=== PATIENT | female | born 1970 | race Two or more races ===

== ENCOUNTER 2020-06-07 09:13 | Outpatient (CLI) | payer OTHER | END 2020-06-07 23:59 | disposition home or self-care (01) | LOC: LAB 09:13 | PROVIDERS: ATTEND Specialist | DX: Z01.812 Encounter for preprocedural laboratory examination (principal); Z20.822 Contact with and (suspected) exposure to COVID-19 | CPT/HCPCS: C9803; U0003 ==

== ENCOUNTER 2020-06-13 05:54 | Day surgery (SDC) | payer OTHER ==
[2020-06-13] MEDS ORDERED: ANESTHESIA TRAY IN PYXIS 1 EA TRAY MC ONE (06:26)
[2020-06-13] MEDS ORDERED: EPINEPHRINE (1:1000) 1 MG/ML AMPUL ONE (06:27)
[2020-06-13] MEDS ORDERED: BUPIVACAINE 0.5 % PF 150 MG/30 ML VIAL ONE (06:45)
[2020-06-13] MEDS ORDERED: methylPREDNISolone ACETATE 80 MG/ML VIAL ONE (06:45)
[2020-06-13] MEDS ORDERED: FENTANYL PF 100MCG/2ML AMPUL ONE (07:25)
[2020-06-13] MEDS ORDERED: ROCURONIUM BROMIDE 50 MG/5 ML ONE (07:26)
[2020-06-13] MEDS ORDERED: MIDAZOLAM HCL 2 MG/2ML VIAL ONE (07:26)
[2020-06-13] MEDS ORDERED: ACETAMINOPHEN 325 MG TABLET ONE ×2 (10:29→10:35)
== END 2020-06-13 11:25 | disposition home or self-care (01) ==
LOC: DS 05:54
PROVIDERS: ATTEND Specialist
DX: M75.41 Impingement syndrome of right shoulder (principal); G56.01 Carpal tunnel syndrome, right upper limb
CPT/HCPCS: 29826; 29827; 64721; 84703; A4217; A4565; A6402; C1713 ×2; J0171; J1100; J1885; J2250; J2370; J2405; J2704; J2765; J3010; J3490; 88304-TC; 88311-TC; J1040